=== PATIENT | female | born 1970 | race Hispanic/Latino ===

== ENCOUNTER → 2021-02-19 | Outpatient (REF) | payer OTHER, MEDICAID ==
[2021-02-19 12:12] LABS: AMORPHOUS SEDIMENT MODERATE (NEGATIVE); APPEARANCE, URINE TURBID (CLEAR); BACTERIA, URINE AUTO NEGATIVE (NEGATIVE); BILIRUBIN, URINE AUTO NEGATIVE (NEGATIVE); BLOOD, URINE BLOOD NEGATIVE (NEGATIVE); COLOR, URINE AMBER (YELLOW); GLUCOSE, URINE (UA) AUTO NEGATIVE (NEGATIVE); KETONE, URINE AUTO NEGATIVE (NEGATIVE); LEUKOCYTE ESTERASE, URINE AUTO TRACE (NEGATIVE); MUCUS, URINE SMALL (NEGATIVE); NITRITE, URINE AUTO NEGATIVE (NEGATIVE); PROTEIN, URINE AUTO NEGATIVE (NEGATIVE); RBC, URINE AUTO 0 /HPF (0-3); SPECIFIC GRAVITY URINE AUTO 1.024 (1.002-1.035); SQUAMOUS EPITHELIAL CELL UR AU 2 /HPF (0-6); UROBILINOGEN, URINE AUTO 0.2 mg/dL (0.0-2.0); WBC, URINE AUTO 0 /HPF (0-3)
[2021-02-19 12:15] LABS: BASO % 0.4 % (0.0-1.0); EOS # 0.3 10^3/uL (0.0-0.5); EOS % 5.8 % (0.0-3.0); HEMATOCRIT 44.1 % (36.0-47.0); HEMOGLOBIN 13.8 g/dl (12.0-15.5); LYMPH # 1.7 10^3/uL (1.5-5.0); LYMPH % 31.5 % (24.0-44.0); MEAN CORPUSCULAR HGB CONC 31.3 g/dl (32.0-36.5); MEAN CORPUSCULAR VOLUME 83.2 fl (80.0-96.0); MONO # 0.3 10^3/uL (0.0-0.8); MONO % 4.8 % (2.0-8.0); NEUTROPHILS # 3.1 10^3/uL (1.5-8.5); NEUTROPHILS % 57.1 % (36.0-66.0); PLATELET COUNT, AUTOMATED 195 10^3/uL (150-450); WHITE BLOOD COUNT 5.4 10^3/uL (4.0-10.0)
[2021-02-19 12:50] LABS: ALBUMIN 3.7 GM/DL (3.2-5.2); ALT/SGPT 53 U/L (12-78); BILIRUBIN,TOTAL 0.5 MG/DL (0.2-1.0); BLOOD UREA NITROGEN 18 MG/DL (7-18); CALCIUM LEVEL 9.7 MG/DL (8.5-10.1); CARBON DIOXIDE LEVEL 28 MEQ/L (21-32); CHLORIDE LEVEL 109 MEQ/L (98-107); CHOLESTEROL LEVEL 103 MG/DL (<200); CHOLESTEROL RISK RATIO 1.872 (<5); CREATININE FOR GFR 0.58 MG/DL (0.55-1.30); FREE T4 1.06 NG/DL (0.76-1.46); GLOMERULAR FILTRATION RATE > 60.0 (>51); GLUCOSE, FASTING 105 MG/DL (70-100); HDL CHOLESTEROL 55 MG/DL (>40); LDL CHOLESTEROL 41 MG/DL (<100); NON-HDL-C 48 MG/DL; POTASSIUM SERUM 4.5 MEQ/L (3.5-5.1); SODIUM LEVEL 142 MEQ/L (136-145); TOTAL PROTEIN 7.2 GM/DL (6.4-8.2); TRIGLYCERIDES LEVEL 35 MG/DL (<150)
[2021-02-19 12:51] LABS: TOTAL 25(OH) VITAMIN D 14.5 NG/ML (30.0-100.0)
[2021-02-19 12:57] LABS: HEMOGLOBIN A1c 5.9 %
== END ==
LOC: M LAB REF 11:36
PROVIDERS: ATTEND Nurse Practitioner Family
DX: Z00.00 Encounter for general adult medical examination without abnormal findings (principal); E66.9 Obesity, unspecified; K21.9 Gastro-esophageal reflux disease without esophagitis; J45.909 Unspecified asthma, uncomplicated

== ENCOUNTER 2021-05-16 14:18 | Emergency (ER) | payer OTHER, MEDICAID ==
[~2021-05-16] VITALS: Ht 165.1 cm; Wt 125.6 kg
[~2021-05-16 14:18] MED LIST: ALBU8.5H INH; CITA20TA6 PO; TRAZ-252 PO
--- NOTE | 2021-05-16 15:50 | REP ---
INDICATION: TRAUMA, HYPEREXTENSION COMPARISON: None. TECHNIQUE: AP, lateral, bilateral oblique and sunrise views. FINDINGS: Early-advanced tricompartmental osteoarthritic degenerative changes are appreciated. No acute fracture or dislocation. No obvious effusion. IMPRESSION: Early-advanced tricompartmental arthritic changes. No acute fracture or dislocation. <Electronically signed by Erwin Cervantes > 05/16/21 [id number]
--- NOTE | 2021-05-16 16:08 | REP ---
INDICATION: PAIN TO LEFT CALF COMPARISON: None. TECHNIQUE: Real time compression and duplex Doppler interrogation of the left lower extremity deep venous system is performed, including the right common femoral vein.Compression of the left peroneal and posterior tibial veins is attempted. FINDINGS: The left common femoral, superficial femoral and popliteal veins are fully compressible with transducer pressure and demonstrate normal spontaneous and phasic flow, without evidence of deep venous thrombosis.The right common femoral vein demonstrates no thrombus.The left peroneal and posterior tibial veins could not be seen due to patient body habitus. IMPRESSION: No evidence of deep venous thrombosis of the left lower extremity femoral popliteal venous system. The left peroneal and posterior tibial veins could not be seen due to patient body habitus. <Electronically signed by Sanket Gonsalez > 05/16/21 [id number]
[2021-05-16] MEDS ORDERED: LIDOCAINE 4% CREAM 5GM (LMX4) TOP ONE (16:15)
[2021-05-16] MEDS ORDERED: ACETAMINOPHEN 500 MG TAB PO ONE (16:15)
[2021-05-16] MEDS ORDERED: IBUPROFEN 600MG TAB PO ONE (16:15)
[2021-05-16] MEDS ORDERED: ANEC4CRE3 TOP (17:09)
[2021-05-16 17:40] VITALS: BP 155/98
== END 2021-05-16 17:50 | disposition home or self-care (01) ==
LOC: M ED 14:18
DX: S89.92XA Unspecified injury of left lower leg, initial encounter (principal); W50.0XXA Accidental hit or strike by another person, initial encounter; Y92.019 Unspecified place in single-family (private) house as the place of occurrence of the external cause; Y93.9 Activity, unspecified; Y99.9 Unspecified external cause status; M17.12 Unilateral primary osteoarthritis, left knee; Z79.899 Other long term (current) drug therapy

== ENCOUNTER 2021-05-22 11:56 | Day surgery (SDC) | payer OTHER ==
[~2021-05-22] VITALS: Ht 172.7 cm; Wt 125.6 kg
[~2021-05-22 11:56] MED LIST changes: +ANEC4CRE3 TOP; +LIDOCAINE 2% 100MG/5ML SDV (FOR ANES.) As Ordered ONE; +LR 1,000 ML IV ONE; +MIDAZOLAM INJ 2MG/2ML VIAL (J2250 PER 1MG) As Ordered ONE; +ceFAZolin SOD 2 GM in IV 1 EA IV ONE; +fentaNYL 100 MCG/2 ML INJECTION (J3010) As Ordered ONE; +propofoL 500 MG/50 ML VIAL As Ordered ONE
[2021-05-22] MEDS ORDERED: BUPIVACAINE/EPIN 0.25% 30 ML VIAL As Ordered ONE (12:52)
[2021-05-22] MEDS ORDERED: ACETAMINOPHEN 1000MG 100ML IV BTL (OFIRMEV) (J0131 PER 10MG) As Ordered ONE (13:21)
[2021-05-22] MEDS ORDERED: KETOROLAC 60MG 2ML VIAL As Ordered ONE (13:23)
[2021-05-22] MEDS ORDERED: dexameTHASONE 4 MG/ML 1ML VIAL (J1100 PER 1MG) As Ordered ONE (13:26)
[2021-05-22] MEDS ORDERED: ONDANSETRON 4MG/2ML VIAL As Ordered ONE (13:26)
--- NOTE | 2021-05-22 14:03 | ROOPDOC ---
[facility] Report Of Operation Report of Operation DATE OF PROCEDURE: 05/22/21 PREPROCEDURE DIAGNOSES: Left carpal tunnel syndrome. POSTPROCEDURE DIAGNOSES: Same. PROCEDURE PERFORMED: Left open carpal tunnel release. SURGEON: Dr. Perry Johnson MD BLIND ESCORT: Roland, ANESTHESIA: Local MAC anesthetic Dr. Lucero. ESTIMATED BLOOD LOSS: Approximately 10 mL. COMPLICATIONS: None. REMARKS: None. FINDINGS: Unremarkable SPECIMENS REMOVED: None PROCEDURE NOTE: This 50-year-old English speaker we had the translating service through the computer. She had signs and symptoms of left carpal tunnel syndrome as well as on the right side but wished to go ahead with the left side first. I discussed the pros and cons risks and benefits of nonsurgical versus surgical management. She had no further questions wished to proceed and marked the left upper extremity.. DESCRIPTION OF PROCEDURE: Patient was brought to the operating theater. They were placed supine on the operating room table. Hand table was used. Limb was prepped and draped in the usual sterile fashion. I used chlorhexidine-based prep solution allowing over 3 minutes drying time prior to draping. 2 g of IV Ancef was given prior to starting the case. Local/MAC anesthesia was used. Preoperative timeout was performed confirming the site the patient and the surgery. I began by infiltrating 4 mL of 0.25 percent Marcaine with epinephrine in and around the proposed incision site. This was on the palmar surface just distal to the wrist crease longitudinally in line with the fourth digit. The incision length was approximately 2 cm. I allowed the local anesthetic time to work. I carried the dissection down through skin and subcutaneous tissue to meticulous hemostasis. I incised the palmar fascia in line with the skin incision. I incised the transverse carpal ligament in line with the skin incision fully proximally and distally. I excised the small leaflet from the radial side of the transverse carpal ligament. Nerve appeared in continuity throughout the case. I thoroughly irrigated the wound with normal saline. I closed the subcutaneous tissues with 2-0 Vicryl sutures and the skin with 3-0 Ethilon in a horizontal mattress fashion. Wound cleaned with wet and dry dressing followed by application of non stick dressing, 4 x 8 gauze and overwrapped with Vasiliy type dressing. Patient was woken up from their sedation and transferred off the operating room table and taken to postanesthetic care unit in stable condition. All sponge, nee dle, instrument counts were correct. No complications. The patient is to start immediate hand wrist and elbow exercises but avoid heavy lifting and gripping-type activities for the first 6 weeks. They will be discharged home according to day surgery criteria. They can change the dressing postoperative day 1 and avoid showering over top or getting it wet for the first 14 days. Follow-up in the office in 2 weeks' time. Postoperative wound instructions were given. It was recommended to keep the wound clean and dry. Dressing changes as needed. It was reinforced with the patient that they should call us or be seen immediately for redness, drainage, or fever.. Risk factors for harms from taking opioid medications discussed and assessed including but not limited to personal or family history of substance use disorder, anxiety or depression, , age 65 or older, COPD or other un derlying respiratory conditions, and renal or hepatic insufficiency. Discussed with patient concerns and determined any harms they may experience or be currently experiencing such as nausea or constipation, feeling sedated or confused, breathing interruptions during sleep, or taking or craving more opioids than prescribed or difficulty controlling use (addiction). Discussed early warning signs of overdose including confusion, sedation, slurred speech, abnormal gait. PERRY JOHNSON MD May 22, 2021 14:03
[2021-05-22 14:40] VITALS: BP 130/60
== END 2021-05-22 15:05 | disposition home or self-care (01) ==
LOC: M SDC 11:56
PROVIDERS: ATTEND Orthopaedic Surgery Sports Medicine
DX: G56.02 Carpal tunnel syndrome, left upper limb (principal); E66.9 Obesity, unspecified; F32.9 Major depressive disorder, single episode, unspecified; F41.9 Anxiety disorder, unspecified; J45.909 Unspecified asthma, uncomplicated; Z68.42 Body mass index [BMI] 45.0-49.9, adult; Z78.0 Asymptomatic menopausal state; Z86.2 Personal history of diseases of the blood and blood-forming organs and certain disorders involving the immune mechanism
CPT/HCPCS: 64721; J0131; J0690; J1100; J1885; J2250; J2405; J3010

== ENCOUNTER → 2021-06-27 | Outpatient (REF) | payer OTHER, MEDICAID ==
[~2021-06-27] MED LIST changes: -LIDOCAINE 2% 100MG/5ML SDV (FOR ANES.) As Ordered ONE; -LR 1,000 ML IV ONE; -MIDAZOLAM INJ 2MG/2ML VIAL (J2250 PER 1MG) As Ordered ONE; -ceFAZolin SOD 2 GM in IV 1 EA IV ONE; -fentaNYL 100 MCG/2 ML INJECTION (J3010) As Ordered ONE; -propofoL 500 MG/50 ML VIAL As Ordered ONE
[2021-06-27 17:31] LABS: BASO % 0.5 % (0.0-1.0); EOS # 0.4 10^3/uL (0.0-0.5); EOS % 5.9 % (0.0-3.0); HEMATOCRIT 44.2 % (36.0-47.0); LYMPH # 1.8 10^3/uL (1.5-5.0); LYMPH % 27.9 % (24.0-44.0); MEAN CORPUSCULAR HEMOGLOBIN 26.3 pg (27.0-33.0); MEAN CORPUSCULAR HGB CONC 31.7 g/dl (32.0-36.5); MEAN CORPUSCULAR VOLUME 82.9 fl (80.0-96.0); MONO # 0.3 10^3/uL (0.0-0.8); MONO % 5.2 % (2.0-8.0); NEUTROPHILS # 3.9 10^3/uL (1.5-8.5); NEUTROPHILS % 60.3 % (36.0-66.0); PLATELET COUNT, AUTOMATED 201 10^3/uL (150-450); RED BLOOD COUNT 5.33 10^6/uL (4.00-5.40); WHITE BLOOD COUNT 6.5 10^3/uL (4.0-10.0)
[2021-06-27 18:05] LABS: ALBUMIN 3.4 GM/DL (3.2-5.2); ALT/SGPT 47 U/L (12-78); BILIRUBIN,TOTAL 0.6 MG/DL (0.2-1.0); BLOOD UREA NITROGEN 12 MG/DL (7-18); CALCIUM LEVEL 9.3 MG/DL (8.5-10.1); CARBON DIOXIDE LEVEL 28 MEQ/L (21-32); CHLORIDE LEVEL 109 MEQ/L (98-107); CHOLESTEROL LEVEL 103 MG/DL (<200); CREATININE FOR GFR 0.53 MG/DL (0.55-1.30); GLOMERULAR FILTRATION RATE > 60.0 (>51); GLUCOSE, FASTING 99 MG/DL (70-100); HDL CHOLESTEROL 50 MG/DL (>40); LDL CHOLESTEROL 47 MG/DL (<100); NON-HDL-C 53 MG/DL; POTASSIUM SERUM 4.9 MEQ/L (3.5-5.1); SODIUM LEVEL 140 MEQ/L (136-145); TOTAL PROTEIN 7.1 GM/DL (6.4-8.2); TRIGLYCERIDES LEVEL 29 MG/DL (<150)
[2021-06-27 18:12] LABS: HEMOGLOBIN A1c 5.9 %
== END ==
LOC: M LAB REF 16:50
PROVIDERS: ATTEND Nurse Practitioner Family
DX: R73.03 Prediabetes (principal)

== ENCOUNTER → 2021-10-05 | Outpatient (CLI) | payer MEDICAID, OTHER ==
[~2021-10-05] MED LIST changes: +HYDR-3363 PO; +OMEP1CAP73 PO; +VENL75CA2 PO
== END ==
LOC: M LABSMTC 11:24
PROVIDERS: ATTEND Anesthesiology
DX: Z01.812 Encounter for preprocedural laboratory examination (principal); Z20.822 Contact with and (suspected) exposure to COVID-19